=== PATIENT | male | born 1995 | race Two or more races ===

== ENCOUNTER 2017-07-09 23:51 | Emergency (ER) | payer SELFPAY ==
[~2017-07-09] VITALS: Ht 165.1 cm; Wt 103.0 kg
[2017-07-09 23:52] VITALS: BP 145/78
[2017-07-10] MEDS ORDERED: LIDOCAINE-MPF 1%, 5ML ONE ×2 (00:05→00:53)
[2017-07-10] MEDS ORDERED: LIDOCAINE-MPF 1%, 5ML INFIL ONE (00:30)
[2017-07-10] MEDS ORDERED: DIPH,PERTUSS(ACELL),TET VAC/PF 0.5 ML IM-VACC ONE ×2 (00:30→01:52)
== END 2017-07-10 02:02 | disposition home or self-care (01) ==
LOC: ED 23:59
DX: S61.412A Laceration without foreign body of left hand, initial encounter (principal); W25.XXXA Contact with sharp glass, initial encounter; Y93.89 Activity, other specified; Y92.488 Other paved roadways as the place of occurrence of the external cause; Y99.8 Other external cause status; Z87.891 Personal history of nicotine dependence
CPT/HCPCS: 12002; 90715; 96372; 99284